=== PATIENT | male | born 1955 | race Caucasian/White ===

== ENCOUNTER 2023-08-23 19:47 | Inpatient (IN) | payer OTHER ==
[~2023-08-23] VITALS: Ht 172.7 cm; Wt 111.1 kg
[2023-08-23 20:30] LABS: BASOPHILS ABSOLUTE AUTO 0.04 K/mm3 (0.00-0.23); BASOPHILS PERCENT AUTO 1 % (0-2); EOSINOPHILS ABSOLUTE AUTO 0.06 K/mm3 (0.00-0.68); EOSINOPHILS PERCENT AUTO 1 % (0-6); Hematocrit 36.6 % (37.0-53.0); Hemoglobin 13.6 g/dL (13.5-17.5); IMMATURE GRAN ABSOLUTE AUTO 0.02 K/mm3 (0.00-0.10); IMMATURE GRAN PERCENT AUTO 0 % (0-1); LYMPHOCYTES ABSOLUTE AUTO 1.28 K/mm3 (0.84-5.20); LYMPHOCYTES PERCENT AUTO 17 % (21-46); MONOCYTES ABSOLUTE AUTO 0.89 K/mm3 (0.16-1.47); MONOCYTES PERCENT AUTO 12 % (4-13); Mean Corpuscular HGB 32.2 pg (26.0-34.0); Mean Corpuscular HGB Conc 37.2 g/dL (31.5-36.5); Mean Corpuscular Volume 87 fL (80-100); Mean Platelet Volume 8.4 fL (9.1-12.4); NEUTROPHILS ABSOLUTE AUTO 5.39 K/mm3 (1.96-9.15); NEUTROPHILS PERCENT AUTO 70 % (41-73); Platelet Count 270 K/mm3 (150-400); RDW Coefficient Variation 11.9 % (11.7-14.2); RDW Standard Deviation 38.3 fL (35.1-46.3); Red Blood Cell Count 4.22 M/mm3 (4.30-5.90); White Blood Cell Count 7.68 K/mm3 (4.00-11.30)
[2023-08-23] MEDS ORDERED: Thiamine HCl 100 MG Tab PO ONE (20:50)
[2023-08-23 20:57] LABS: Albumin, Blood 3.9 g/dL (3.4-5.0); Albumin/Globulin Ratio 1.2 (0.8-1.8); Bilirubin, Total 0.6 mg/dL (0.1-1.0); Calcium, Blood 9.5 mg/dL (8.5-10.1); Creatinine, Blood 0.69 mg/dL (0.60-1.20); Globulin, Blood 3.2 g/dL (2.2-4.0); Potassium, Blood 2.6 mmol/L (3.5-5.5); Total Protein, Blood 7.1 g/dL (6.4-8.2)
[2023-08-23] MEDS ORDERED: Potassium Chloride 20 MEQ/15 ML UDC PO ONE (21:35)
[2023-08-23] MEDS ORDERED: NS KCL 40 mEq 1,000 ML IV SCH (21:35)
[2023-08-23] MEDS ORDERED: OLANZapine 10 MG Vial IM ONE (21:40)
[2023-08-23 21:56] LABS: U Amphetamine Screen Not Detected; U Barbituate Screen Not Detected; U Benzodiazapine Screen Not Detected; U Buprenorphine Screen Not Detected; U Cannabinoids Screen Not Detected; U Cocaine Screen Not Detected; U Methadone Screen Not Detected; U Methamphetamine Screen Not Detected; U Opiates Screen Not Detected; U Oxycodone Screen Not Detected; U Phencyclidine Screen Not Detected
[2023-08-23 22:00] LABS: Thyroid Stimulating Hormone 2.22 uIU/mL (0.360-4.800)
[2023-08-23 22:03] LABS: Magnesium, Blood 1.1 mg/dL (1.6-2.4)
[2023-08-23] MEDS ORDERED: ChlordiazePOXIDE 25 MG Cap PO PRN (22:25)
[2023-08-23] MEDS ORDERED: Ondansetron HCl 2 MG / ML 2ML Vial IV PRN (22:25)
[2023-08-23] MEDS ORDERED: NS 1,000 ML IV ONE ×2 (22:25→23:42)
[2023-08-23] MEDS ORDERED: LORazepam 2 MG/ML 1ML Injection IV PRN (22:25)
[2023-08-23] MEDS ORDERED: LORazepam 2 MG/ML 1ML Injection IV ONE (22:50)
[2023-08-23 22:54] LABS: Source, Urine Clean Catch
[2023-08-23 22:57] LABS: Bilirubin, Urine Neg (Neg); Blood, Urine Neg (Neg); Glucose Qualitative, Urine Neg (Neg); Ketones, Urine Neg (Neg); Leukocyte Esterase, Urine Neg (Neg); Nitrite, Urine Neg (Neg); Protein, Urine 2+ (Neg); Urobilinogen, Urine NORM (Normal); pH, Urine 6.5 (5.0-8.0)
[2023-08-23] MEDS ORDERED: Enoxaparin 40 MG/0.4 ML SYR SC SCH (23:00)
[2023-08-23 23:05] LABS: Appearance, Urine Clear (Clear); Color, Urine Yellow (P-Yellow)
[2023-08-23 23:06] LABS: Bacteria Not Seen /hpf; Red Blood Cells, Urine Not Seen /hpf (0-2); Squamous Epithelial Cells Not Seen /hpf (Few); White Blood Cells, Urine 0-2 /hpf (0-5)
[2023-08-23 23:09] LABS: International Normalized Ratio 1.31; Prothrombin Time Results 13.7 Sec (9.7-11.5)
[2023-08-23] MEDS ORDERED: Thiamine HCl 100 MG in NS 50 ML IV SCH (23:15)
[2023-08-23] MEDS ORDERED: Magnesium Sulf 2 GM/Water 50ML 50 ML IV ONE (23:15)
[2023-08-23 23:27] LABS: Bun/Creatinine Ratio 13.1 (12.0-20.0); Calcium, Blood 8.9 mg/dL (8.5-10.1); Creatinine, Blood 0.69 mg/dL (0.60-1.20); Potassium, Blood 2.8 mmol/L (3.5-5.5)
[2023-08-24 00:28] VITALS: BP 183/88
[2023-08-24 05:43] VITALS: BP 175/112
[2023-08-24 05:45] VITALS: BP 180/73
[2023-08-24 05:57] LABS: BASOPHILS ABSOLUTE AUTO 0.02 K/mm3 (0.00-0.23); BASOPHILS PERCENT AUTO 0 % (0-2); EOSINOPHILS ABSOLUTE AUTO 0.19 K/mm3 (0.00-0.68); EOSINOPHILS PERCENT AUTO 2 % (0-6); Hematocrit 38.4 % (37.0-53.0); Hemoglobin 13.9 g/dL (13.5-17.5); IMMATURE GRAN ABSOLUTE AUTO 0.01 K/mm3 (0.00-0.10); IMMATURE GRAN PERCENT AUTO 0 % (0-1); LYMPHOCYTES ABSOLUTE AUTO 2.01 K/mm3 (0.84-5.20); LYMPHOCYTES PERCENT AUTO 26 % (21-46); MONOCYTES ABSOLUTE AUTO 0.93 K/mm3 (0.16-1.47); MONOCYTES PERCENT AUTO 12 % (4-13); Mean Corpuscular HGB 32.2 pg (26.0-34.0); Mean Corpuscular HGB Conc 36.2 g/dL (31.5-36.5); Mean Corpuscular Volume 89 fL (80-100); Mean Platelet Volume 8.3 fL (9.1-12.4); NEUTROPHILS ABSOLUTE AUTO 4.68 K/mm3 (1.96-9.15); NEUTROPHILS PERCENT AUTO 60 % (41-73); Platelet Count 257 K/mm3 (150-400); RDW Coefficient Variation 12.2 % (11.7-14.2); RDW Standard Deviation 39.8 fL (35.1-46.3); Red Blood Cell Count 4.32 M/mm3 (4.30-5.90); White Blood Cell Count 7.84 K/mm3 (4.00-11.30)
--- NOTE | 2023-08-24 06:08 | NUR ---
SHIFT SUMMARY: PATIENT ARRIVED ON FLOOR OBTUNDED R/T [facility] PRN. PATIENT WOKE UP TWO HOURS LATER, ORIENTED TO SELF/PLACE/TIME BUT NOT SITUATION. IMPULSIVE, STAFF UNABLE TO REASON WITH PATIENT WHEN PATIENT EXITED BED TO GO TO BATHROOM. 1:1 SITTER. PATIENT SLEPT INTERMITTENTLY.
[2023-08-24 06:22] LABS: Albumin, Blood 3.8 g/dL (3.4-5.0); Albumin/Globulin Ratio 1.3 (0.8-1.8); Bilirubin, Total 0.7 mg/dL (0.1-1.0); Bun/Creatinine Ratio 11.3 (12.0-20.0); Calcium, Blood 9.1 mg/dL (8.5-10.1); Creatinine, Blood 0.71 mg/dL (0.60-1.20); Magnesium, Blood 2.2 mg/dL (1.6-2.4); Potassium, Blood 3.4 mmol/L (3.5-5.5); Total Protein, Blood 6.8 g/dL (6.4-8.2)
[2023-08-24 07:51] VITALS: BP 129/78
[2023-08-24] MEDS ORDERED: LORazepam 2 MG/ML 1ML Injection IV ONE (09:55)
--- NOTE | 2023-08-24 11:57 | NUR ---
0819- SECURITY PRESENT AT THIS TIME. PATIENT AGITATED, STATING TO LEAVE AMA, SENDY ABLE TO TALK PATIENT DOWN. ACCEPTING OF [facility] AT THIS TIME. MAKING STATEMENTS THAT PATIENT HAS NOT SLEPT IN 3 OR 4 DAYS, HAS BEEN [place] HOPPING DOWN FROM [facility]. PATIENT SLEEPING AOUT 45 MINUTES LATER. PATIENT SLEEPING UNTIL ABOUT 1100, WOKE WHEN BED WAS BEING MOVED FOR CT SCAN. PT REFUSED THIS SCAN. A/O X4 AT THIS TIME, STATING HE DIDN'T WANT ANY MORE MEDICATION BECAUSE IT SEDATES HIM, PUSHING STAFF. 1:1 LEFT ROOM TO LOOK FOR IN [place]. SECURITY CALLED AND PRESENT. DEMANDING IV'S OUT AND STATING HE IS LEAVING. DOC CALLED WHO STATED TO HAVE SECURITY ASSIST WITH [facility] ADMINISTRATION. THIS RN DECLINED TO TAKE THIS COURSE OF ACTION. PT A/OX4 AT THIS TIME AND DECLINING THIS MEDICATION. EDUCATION PROVIDED TO PATIENT REGARDING CONSEQUENCES OF NOT BEING TREATED, PT AWARE AND ABLE TO VERBALIZE UNDERSTANDING. DEMANDING TO LEAVE AMA. IV'S REMOVED, DECLINING TO WAIT FOR TO RETURN AND DIDN'T WANT TO CALL HER CELL. WALKED OUT WITH SECURITY. DECLINED TO SIGN AMA FORM STATING HE DIDN'T AGREE TO BE ADMITTED SO HE ISN'T AGREEING IT'S AGAINST MEDICAL ADVICE. CHARGE NURSE AWARE AND UPDATED ON SITUATION. DOC CALLED AND UPDATED THAT PATIENT LEFT AMA. INFORMED THAT EDUCATION WAS PROVIDED AND PATIENT A/O AT THIS TIME, OF HIS BEHAVIORS AND THAT SECURITY WAS PRESENT.
== END 2023-08-24 11:18 | disposition left against medical advice (07) | DRG 640 ==
LOC: ER 19:47 → MEDS 22:22
PROVIDERS: Emergency Medicine; Student in an Organized Health Care Education/Training Program; ADMIT Internal Medicine
DX: E87.1 Hypo-osmolality and hyponatremia (principal); G93.41 Metabolic encephalopathy; E87.6 Hypokalemia; E83.42 Hypomagnesemia; R74.01 Elevation of levels of liver transaminase levels; E11.9 Type 2 diabetes mellitus without complications; E78.5 Hyperlipidemia, unspecified; I10 Essential (primary) hypertension; F10.229 Alcohol dependence with intoxication, unspecified; M10.9 Gout, unspecified; M54.9 Dorsalgia, unspecified; Z53.29 Procedure and treatment not carried out because of patient's decision for other reasons; G89.29 Other chronic pain; Z86.73 Personal history of transient ischemic attack (TIA), and cerebral infarction without residual deficits; Z88.8 Allergy status to other drugs, medicaments and biological substances
CPT/HCPCS: 36415; 70450; 80048; 80053; 81001; 82140; 83735; 83880; 84443; 85025; 85610; 93005; 93010; 96372-59; 96374; 99285-25; A9270; J1650; J2060; J3411; J3475; J3480; J7030

== ENCOUNTER 2023-08-28 03:56 | Emergency (ER) | payer MEDICARE ==
[~2023-08-28] VITALS: Ht 165.1 cm; Wt 113.4 kg
[2023-08-28] MEDS ORDERED: Droperidol 5 mg/2 ml Vial IV ONE (04:25)
[2023-08-28 04:28] LABS: BASOPHILS ABSOLUTE AUTO 0.04 K/mm3 (0.00-0.23); BASOPHILS PERCENT AUTO 1 % (0-2); EOSINOPHILS ABSOLUTE AUTO 0.07 K/mm3 (0.00-0.68); EOSINOPHILS PERCENT AUTO 1 % (0-6); Hematocrit 37.9 % (37.0-53.0); Hemoglobin 13.5 g/dL (13.5-17.5); IMMATURE GRAN ABSOLUTE AUTO 0.02 K/mm3 (0.00-0.10); IMMATURE GRAN PERCENT AUTO 0 % (0-1); LYMPHOCYTES PERCENT AUTO 15 % (21-46); MONOCYTES ABSOLUTE AUTO 0.97 K/mm3 (0.16-1.47); MONOCYTES PERCENT AUTO 12 % (4-13); Mean Corpuscular HGB 31.8 pg (26.0-34.0); Mean Corpuscular HGB Conc 35.6 g/dL (31.5-36.5); Mean Corpuscular Volume 89 fL (80-100); NEUTROPHILS ABSOLUTE AUTO 5.92 K/mm3 (1.96-9.15); NEUTROPHILS PERCENT AUTO 72 % (41-73); Platelet Count 361 K/mm3 (150-400); RDW Coefficient Variation 12.2 % (11.7-14.2); Red Blood Cell Count 4.24 M/mm3 (4.30-5.90); White Blood Cell Count 8.22 K/mm3 (4.00-11.30)
[2023-08-28 04:46] LABS: Albumin, Blood 3.7 g/dL (3.4-5.0); Albumin/Globulin Ratio 1.3 (0.8-1.8); Bilirubin, Total 0.9 mg/dL (0.1-1.0); Bun/Creatinine Ratio 16.6 (12.0-20.0); Calcium, Blood 8.2 mg/dL (8.5-10.1); Creatinine, Blood 0.72 mg/dL (0.60-1.20); Globulin, Blood 2.9 g/dL (2.2-4.0); Total Protein, Blood 6.6 g/dL (6.4-8.2)
[2023-08-28] MEDS ORDERED: NS 1,000 ML IV SCH (05:10)
[2023-08-28] MEDS ORDERED: Thiamine HCl 100 MG Tab PO ONE (05:25)
[2023-08-28] MEDS ORDERED: Potassium Chloride 20 MEQ TabCR PO ONE (05:25)
[2023-08-28] MEDS ORDERED: Folic Acid 1 MG TAB PO ONE (05:25)
== END 2023-08-28 05:55 ==
LOC: ER 03:56 → EDBD 03:56 → ER 05:55
PROVIDERS: Emergency Medicine
DX: F10.20 Alcohol dependence, uncomplicated (principal); E86.0 Dehydration; E11.9 Type 2 diabetes mellitus without complications; Z68.41 Body mass index [BMI] 40.0-44.9, adult; Z86.73 Personal history of transient ischemic attack (TIA), and cerebral infarction without residual deficits; Z88.5 Allergy status to narcotic agent
CPT/HCPCS: 80053; 83605; 85025; 93005; 93010; 96374; 99285-25; A9270; J1790; J7030